=== PATIENT | male | born 1970 | race African-American/Black ===

== ENCOUNTER 2022-10-07 08:38 | Emergency (ER) | payer OTHER ==
[~2022-10-07] VITALS: Ht 170.2 cm; Wt 88.5 kg
[2022-10-07 08:50] VITALS: BP 146/85
--- NOTE | 2022-10-07 08:59 | NUR ---
51/m walked in c/o right hand swelling onset 1 wk ago. pt reports new onset l arm numbness onset this morning. pt denies any injury or fall. denies any pain. 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 no facial droop or speech slur noted. aao4, ambulatory, vitals stable Hx-Asthma
--- NOTE | 2022-10-07 09:15 | NUR ---
Patient discharged with v/s stable. Written and verbal after care instructions given and explained. Patient verbalized understanding. Ambulatory with steady gait. All questions addressed prior to discharge. Advised to follow up with PMD.
== END 2022-10-07 09:15 | disposition home or self-care (01) ==
LOC: MED 08:38
DX: M79.622 Pain in left upper arm (principal); R20.2 Paresthesia of skin
CPT/HCPCS: 99281